=== PATIENT | male | born 1970 | race Caucasian/White ===

== ENCOUNTER 2022-10-07 11:36 | Emergency (ER) | payer OTHER, SELFPAY ==
[2022-10-07 11:46] VITALS: BP 138/82; PULSE 66; RESP 16; TEMP 36.8; O2SAT 98
[2022-10-07 14:20] LABS: Abs Immature Grans 0.02 10^3/uL (0.0-0.06); Absolute Basophil Count 0.02 10^3/uL (0.0-0.2); Absolute Eosinophil Count 0.08 10^3/uL (0.0-0.7); Absolute Lymphocyte Count 2.66 10^3/uL (1.2-3.4); Absolute Monocyte Count 0.64 10^3/uL (0.1-0.8); Absolute Neutrophil Count 2.31 10^3/uL (1.2-6.7); Basophils % 0.3; Eosinophils % 1.4; HCT 42.5 % (40.0-50.0); HGB 14.6 g/dL (13.5-17.5); Immature Grans % 0.3; Lymphocytes % 46.4; MCH 31.5 pg (27.0-33.0); MCHC 34.4 % (32.0-36.0); MCV 92 fL (80-95); MPV 10.5 fL (8.0-11.0); Monocytes % 11.2; Neutrophils % 40.4; Platelet Count 253 10^3/uL (130-400); RBC 4.63 10^6/uL (4.36-5.78); RDW 12.6 % (11.8-14.1); RDW-SD 42.7 fL; WBC 5.73 10^3/uL (4.4-10.8)
[2022-10-07 14:38] LABS: ALT 39 U/L (16-63); AST 22 U/L (15-37); Albumin 3.8 g/dL (3.4-5.0); Alkaline Phosphatase 58 U/L (46-116); Anion Gap 6.9 mmol/L (3-11); BUN 17 mg/dL (7-18); Bilirubin, Total 0.3 mg/dL (0.2-1.0); CO2 32.1 mmol/L (21.0-32.0); CREATININE 0.7 mg/dL (0.70-1.30); Calcium 9.1 mg/dL (8.5-10.1); Chloride 100 mmol/L (98-107); Estimated GFR 112.25 (mL/min/1.73m2); Glucose 115 mg/dL (74-106); Sodium 139 mmol/L (136-145); Total Protein 8.3 g/dL (6.4-8.2)
--- NOTE | 2022-10-07 14:52 | ED.GENADUL_ITS ---
Discharge Plan Disposition Patient Disposition: Home Condition: Stable Discharge Details Clinical Impression: GI bleed Primary Care Provider: Unknown,Unknown ED Provider: Owen Restrepo Discharge Instructions Instructions: Rectal Bleeding (ED) Additional Instructions: At this time your laboratory values do not reveal any obvious emergent process. Please continue taking the [id number] medications for constipation. As we discussed, I cannot express the importance of an outpatient colonoscopy. You are traveling tomorrow back to [place], please watch for new or worsening symptoms and if they present longer travels go to the nearest ER, otherwise follow-up with your primary care provider to discuss your ongoing symptoms and need for colonoscopy. Discharge Data Discharge Date/Time-TO BE ENTERED AT DEPARTURE: 10/07/22 15:29 Medical Decision Making This is a 52-year-old gentleman who is here from [place], traveling back tomorrow, denies significant past medical history, reports 10-day history of some blood in his stool, denies black tarry stools. Patient reports a few small bowel movements over the past week or so but no normal bowel movements, has been taking [id number] stool softener and laxatives over the past 24-48 hours. Patient states he has similar episode last January but was never evaluated. He tells me that he primarily wants to be sure that he is safe to travel home tomorrow and then can continue his work-up at home through his PCP. He tells me he has never had a colonoscopy. Clinically he appears well, nontoxic. He is hemodynamically stable. Abdomen is soft, nontender. Rectal exam reveals trace heme positive stool. No obvious hemorrhoids. Plan is to obtain IV access, obtain routine screening laboratory values, and reassess. Laboratory values reveal no evidence of leukocytosis, anemia, thrombocytopenia. Sodium 139 potassium 4.0. Anion gap of 6.9. BUN 17 creatinine 0.7 with a GFR of 112.25. Albumin 38. Laboratory values are grossly unremarkable for any obvious emergent process. Discussed laboratory values with patient. Patient would prefer to be discharged and follow-up with his PCP at home in [place] and we discussed importance of outpatient colonoscopy for further evaluation. At this time no clear indication to obtain abdominal and/or pelvic CT imaging. Standard discharge and return precautions were provided. Patient understands, is agreeable to this plan, and has no additional questions or concerns upon discharge. This documentation was generated using [employer] system, please disregard any oddities of phrase or misspellings. Lab Data Lab results reviewed: Yes I reviewed the patient's lab results. Labs: Laboratory Tests Range/Units 10/07/22 10/07/22 14:12 14:12 WBC (4.4-10.8) 10^3/uL 5.73 RBC (4.36-5.78) 10^6/uL 4.63 Hgb (13.5-17.5) g/dL 14.6 Hct (40.0-50.0) % 42.5 MCV (80-95) fL 92 MCH (27.0-33.0) pg 31.5 MCHC (32.0-36.0) % 34.4 RDW (11.8-14.1) % 12.6 Plt Count (130-400) 10^3/uL 253 MPV (8.0-11.0) fL 10.5 Immature Gran % 0.3 Neutrophils % 40.4 Lymphocytes % 46.4 Monocytes % 11.2 Eosinophils % 1.4 Basophils % 0.3 Nucleated RBC % (0.0-0.3) % 0.0 Absolute Neutrophils (1.2-6.7) 10^3/uL 2.31 Absolute Lymphocytes (1.2-3.4) 10^3/uL 2.66 Absolute Monocytes (0.1-0.8) 10^3/uL 0.64 Absolute Eosinophils (0.0-0.7) 10^3/uL 0.08 Absolute Basophils (0.0-0.2) 10^3/uL 0.02 Sodium (136-145) mmol/L 139 Potassium (3.5-5.1) mmol/L 4.0 Chloride (98-107) mmol/L 100 Carbon Dioxide (21.0-32.0) mmol/L 32.1 H Anion Gap (3-11) mmol/L 6.9 BUN (7-18) mg/dL 17 Creatinine (0.70-1.30) mg/dL 0.7 Est GFR (CKD-EPI 2020) (mL/min/1.73m2) 112.25 Glucose (74-106) mg/dL 115 H Calcium (8.5-10.1) mg/dL 9.1 Total Bilirubin (0.2-1.0) mg/dL 0.3 AST (15-37) U/L 22 ALT (16-63) U/L 39 Alkaline Phosphatase (46-116) U/L 58 Total Protein (6.4-8.2) g/dL 8.3 H Albumin (3.4-5.0) g/dL 3.8 Sign Out No HPI General Mode of arrival: ambulatory . Date/Time Provider Initiated Documentation: 10/07/22 14:08 . Limitations to Documentation: no limitations . Information obtained by: patient . History of Present Illness 52 year old M presents to the emergency department with the chief complaint of GI bleed, described as mild, with intensity rated at 3. Quality is described as other (Pressure), and is localized to the abdomen (Lower). Patient reports no radiation. Patient started experiencing this day(s) () and it has been constant and other (Similar episode last January). No relieving factors improve symptom(s), No exacerbating factors reported . Patient notes other (Decreased bowel movements). Patient did receive the following treatments prior to arrival, none General Stated Complaint: GI Bleed DONIS: 3 Review of Systems Constitutional Constitutional: Denies fever(s) and Denies weakness Cardiovascular Cardiovascular: Denies chest pain and Denies dyspnea Respiratory Respiratory: Denies dyspnea Gastrointestinal Gastrointestinal: Denies abdominal pain, Denies melena, Reports hematochezia, Reports constipation, Reports diarrhea, Reports loose stools, Denies nausea and Denies vomiting Genitourinary Genitourinary: Denies hematuria Musculoskeletal Musculoskeletal: Denies back pain Integumentary/Breasts Skin/Breast: Denies rash Neurologic Neurologic: Denies weakness Hematologic/Lymphatic Hematologic/Lymphatic: Reports easy bleeding and Reports easy bruising PFSH All Active Problems (Updated 10/07/22 @ 15:21 by JONO Verma) GI bleed (Chronic) Social History Smoking risk assessment performed?: No Do you feel safe at home: Yes Do you feel safe in your relationship?: Yes Exam Const General: cooperative, healthy appearing, comfortable and no acute distress Orientation: alert, awake and oriented x3 HENMT Head: normal to inspection, normocephalic and atraumatic Face and sinus: normal facial exam Mouth: moist mucous membranes Eyes Conjunctivae: conjunctivae normal Neck Neck: normal visual inspection, full ROM, no meningeal signs, trachea midline and supple Resp Effort & Inspection: normal respiratory effort and able to speak in complete sentences Auscultation: clear to auscultation bilaterally Cardio Rate: regular rate Rhythm: regular rhythm GI Inspection: normal to inspection Palpation: soft, not firm, no guarding, no pulsatile masses and nontender Auscultation: normal bowel sounds Rectal Exam: visual inspection normal, normal sphincter tone, prostate normal and heme positive stool trace Back/Spine/Pelvis Back: No back tenderness Skin General skin exam: no rashes or lesions noted Neuro General: patient alert, patient awake, moves all extremities and no focal motor deficits Cognition: normal cognition Speech: speech normal Gait: normal gait Motor: muscle tone normal throughout Sensory Exam: no sensory deficits noted Extrem General: normal to inspection, full ROM and capillary refill normal Psych Appearance: grossly normal Mental Status: mental status grossly normal Course Vital Signs Vital signs: Vital Signs Temperature 36.8 C 10/07/22 11:46 Pulse 66 10/07/22 11:46 Respiratory Rate 16 10/07/22 11:46 Blood Pressure 138/82 10/07/22 11:46 Pulse Oximetry 98 10/07/22 11:46 Temperature 36.8 C 10/07/22 11:46 Pulse 66 10/07/22 11:46 Respiratory Rate 16 10/07/22 11:46 Respiratory Effort Non-Labored 10/07/22 14:16 Blood Pressure 138/82 10/07/22 11:46 Blood Pressure Position Sitting 10/07/22 11:46 Pulse Oximetry 98 10/07/22 11:46 Oxygen Delivery Method Room Air 10/07/22 11:46 Oxygen Flow Rate 0 10/07/22 11:46 Pain Level 3 10/07/22 11:46 Lab/Test Results Lab/Test Results: Laboratory Tests Range/Units 10/07/22 10/07/22 14:12 14:12 WBC (4.4-10.8) 10^3/uL 5.73 RBC (4.36-5.78) 10^6/uL 4.63 Hgb (13.5-17.5) g/dL 14.6 Hct (40.0-50.0) % 42.5 MCV (80-95) fL 92 MCH (27.0-33.0) pg 31.5 MCHC (32.0-36.0) % 34.4 RDW (11.8-14.1) % 12.6 Plt Count (130-400) 10^3/uL 253 MPV (8.0-11.0) fL 10.5 Immature Gran % 0.3 Neutrophils % 40.4 Lymphocytes % 46.4 Monocytes % 11.2 Eosinophils % 1.4 Basophils % 0.3 Nucleated RBC % (0.0-0.3) % 0.0 Absolute Neutrophils (1.2-6.7) 10^3/uL 2.31 Absolute Lymphocytes (1.2-3.4) 10^3/uL 2.66 Absolute Monocytes (0.1-0.8) 10^3/uL 0.64 Absolute Eosinophils (0.0-0.7) 10^3/uL 0.08 Absolute Basophils (0.0-0.2) 10^3/uL 0.02 Sodium (136-145) mmol/L 139 Potassium (3.5-5.1) mmol/L 4.0 Chloride (98-107) mmol/L 100 Carbon Dioxide (21.0-32.0) mmol/L 32.1 H Anion Gap (3-11) mmol/L 6.9 BUN (7-18) mg/dL 17 Creatinine (0.70-1.30) mg/dL 0.7 Est GFR (CKD-EPI 2020) (mL/min/1.73m2) 112.25 Glucose (74-106) mg/dL 115 H Calcium (8.5-10.1) mg/dL 9.1 Total Bilirubin (0.2-1.0) mg/dL 0.3 AST (15-37) U/L 22 ALT (16-63) U/L 39 Alkaline Phosphatase (46-116) U/L 58 Total Protein (6.4-8.2) g/dL 8.3 H Albumin (3.4-5.0) g/dL 3.8
== END 2022-10-07 15:29 | disposition home or self-care (01) ==
PROVIDERS: Emergency Provider Physician Assistant
DX: K92.2 Gastrointestinal hemorrhage, unspecified (principal)
CPT/HCPCS: 80053; 99282; 85025